=== PATIENT | male | born 1965 | race Caucasian/White ===

== ENCOUNTER 2021-06-07 04:49 | Day surgery (SDC) | payer BC ==
[2021-06-03 15:55] VITALS: BMI 30.4
[2021-06-07 11:13] VITALS: TEMP 97.1
[2021-06-07 11:53] VITALS: PULSE 63
[2021-06-07 12:24] VITALS: BP 109/60
== END 2021-06-07 12:30 | disposition home or self-care (01) ==
LOC: JASU-ENDO 04:49
PROVIDERS: ATTEND Internal Medicine Gastroenterology
PROC: 0DB98ZX Excision of Duodenum, Via Natural or Artificial Opening Endoscopic, Diagnostic (ICD-10-PCS; 2021-06-07)
PROC: 0DB68ZX Excision of Stomach, Via Natural or Artificial Opening Endoscopic, Diagnostic (ICD-10-PCS; 2021-06-07)
PROC: 0DB48ZX Excision of Esophagogastric Junction, Via Natural or Artificial Opening Endoscopic, Diagnostic (ICD-10-PCS; 2021-06-07)
PROC: 0DBL8ZX Excision of Transverse Colon, Via Natural or Artificial Opening Endoscopic, Diagnostic (ICD-10-PCS; principal; 2021-06-07 10:00)
DX: Z12.11 Encounter for screening for malignant neoplasm of colon (principal); D12.3 Benign neoplasm of transverse colon; K64.8 Other hemorrhoids; K57.30 Diverticulosis of large intestine without perforation or abscess without bleeding; K21.00 Gastro-esophageal reflux disease with esophagitis, without bleeding; K29.50 Unspecified chronic gastritis without bleeding
CPT/HCPCS: 88305-TC; 88342-TC